=== PATIENT | female | born 1945 | race Caucasian/White ===

== ENCOUNTER 2024-11-24 14:22 | Emergency (ER) | payer OTHER ==
--- OUTSIDE RECORDS SUMMARY | 2024-11-24 14:27 | XMS REPORT | Continuity of Care Document ---
Author Name Unknown Address [address] [facility]. 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 Name Role Phone Deacon Pearson Primary Care Physician Unavailab chucho Selby MD, [facility] Attending Clinician Ethel Holm MD Attending Clinician [phone] Jw Duff MD Attending Clinician [phone] ETHEL HOLM Attending Clinician Unavailable Jw Duff MD Admitting Clinician [phone] JW DUFF Admitting Clinician Unavailable Payers Payer Name Policy Type Policy Number Effective Date Expirati on Date Source Problems Condition Name Condition Details Condition Category Status Onset Date Resolution Date Last Treatment Date Treating Clinician Comments Source SBO (small bowel obstructio n) SBO (small bowel obstructio n) Disease Active 04-16 00:00: 00 [facility] Allergies, Adverse Reactions, Alerts Allergy Name Allergy Type Status Severity Reaction(s) Onset Date Inactive Date Treating Clinician Comments Source Sulfur Propensi ty to adverse reaction s Active Rash 04-16 00:00: 00 [facility] PENICILL IN DRUG INGREDI Active Anaphylaxis 04-16 00:00: 00 [facility] SULFUR DRUG INGREDI Active Rash 04-16 00:00: 00 [facility] ONION DRUG INGREDI Active Swelling 04-16 00:00: 00 [facility] ALBUTERO L SULFATE DRUG INGREDI Active Hives 04-16 00:00: 00 [facility] Albutero l Sulfate Propensi ty to adverse reaction s Active Hives 04-16 00:00: 00 [facility] Onion Propensi ty to adverse reaction s Active Swelling 04-16 00:00: 00 lips [facility] Penicill in Propensi ty to adverse reaction s Active Anaphylaxis 04-16 00:00: 00 [facility] NO KNOWN ALLERGIE S Drug Class Active [facility] Social History Social Habit Start Date Stop Date Quantity Comments Source Sexual orientation [facility] History of Social function 2024-10-03 00:00:00 2024-10-03 00:00:00 [facility] Exposure to SARS-CoV-2 (event) 2022-04-06 00:00:00 2022-04-16 00:48:00 Not sure [facility] Sex assigned at 1945 00:00:00 1945 00:00:00 [facility] Smoking Status Start Date Stop Date Source Never smoked tobacco [facility] Medications Ordered Medication Name Filled Medication Name Start Date Stop Date Current Medication? Ordering Clinician Indication Dosage Frequency Signature (SIG) Comments Components Source NaCl 0.9% (NS) IV infusion 1,000 mL 04-18 17:00: 00 Yes 1000mL at 100 mL/hr, IV Infusion, CONTINUOUS , Starting on 04/18/22 at 1200, Until Discontinu ed, Routine [facility] lactated ringers IV infusion 500 mL 04-18 17:00: 00 04-18 15:54 :00 No 500mL at 250 mL/hr, 500 mL, IV Infusion, ONCE, 1 dose, On 04/18/22 at 1200, STAT [facility] benzocaine- menthoL (CEPACOL SORE THROAT (JAVIER-MEN)) lozenge 1 Lozenge 04-18 16:18: 59 Yes 1{lozen ge} 1 Lozenge, Oral, Q4HPRN, Starting on 04/18/22 at 1118, Until Discontinu ed, Routine, Sore throat [facility] GLIPIZIDE ORAL 04-18 14:28: 46 04-18 00:00 :00 No 5mg Take 5 mg by mouth 2 (two) times daily with meals. [facility] enalapril 5 mg tablet 04-18 14:28: 46 04-18 00:00 :00 No 5mg Take 5 mg by mouth 2 (two) times daily. [facility] TRIAMTERENE ORAL 04-18 14:28: 46 04-18 00:00 :00 No 7mg Take 7 mg by mouth daily. [facility] guanfacine HCl (GUANFACINE ORAL) 04-18 14:28: 46 04-18 00:00 :00 No 1mg Take 1 mg by mouth 2 (two) times daily. [facility] KCL (POTASSIUM CHLORIDE) 20 mEq in lactated ringers 1,000 mL infusion 04-17 17:15: 00 04-18 15:49 :35 No IV Infusion, CONTINUOUS , Starting on Wed04/17/22 at 1215, Until 04/18/22 at 1049, 1,000 mL, at 100 mL/hr [facility] magnesium sulfate in water 2 gram/50 mL (4 %) infusion 2 g 04-17 17:00: 00 04-17 18:42 :00 No 2g 2 g, IV Piggyback, Administer over 60 Minutes, Q1H, 2 doses, First dose on Wed04/17/22 at 1200, Last dose on Wed04/17/22 at 1300, Routine [facility] metoprolol (LOPRESSOR) injection 5 mg 04-17 05:30: 00 04-17 04:36 :00 No 5mg 5 mg, Intravenou s, ONCE, 1 dose, On Wed04/17/22 at 0030, Routine [facility] NaCl 0.9% (NS) IV infusion 500 mL 04-17 00:00: 00 04-17 00:22 :00 No 500mL at 125 mL/hr, IV Infusion, ONCE, 1 dose, On Wed04/16/22 at 1900, Routine [facility] NaCl 0.9% (NS) PEDIATRIC IV infusion 04-16 23:30: 00 04-17 16:09 :26 No IV Infusion, at 125 mL/hr, CONTINUOUS , Starting on Wed04/16/22 at 1830, Until Wed04/17/22 at 1109, Routine [facility] metoprolol (LOPRESSOR) injection 5 mg 04-16 22:00: 00 04-16 21:13 :00 No 5mg 5 mg, Slow IV Push, ONCE, 1 dose, On Wed04/16/22 at 1700, Routine [facility] heparin (porcine) injection 5,000 Units 04-16 19:00: 00 Yes 5000U 5,000 Units, Subcutaneo us, Q8H, First dose on Wed04/16/22 at 1400, Until Discontinu ed, Routine [facility] hydralAZINE (APRESOLINE ) injection 10 mg 04-16 17:20: 03 Yes 10mg 10 mg, Slow IV Push, Q6HPRN, Starting on Wed04/16/22 at 1220, Until Discontinu ed, Routine, DBP=>100; SBP=>160, For SBP > 160 [facility] LORazepam (ATIVAN) injection 0.5 mg 04-16 17:18: 55 Yes .5mg 0.5 mg, Slow IV Push, TIDPRN, Starting on Wed04/16/22 at 1218, Until Discontinu ed, Routine, Anxiety, Agitation [facility] proMETHazin e (PHENERGAN) 25 mg in NaCl 0.9% (NS) 50 mL IV piggyback 04-16 17:17: 26 Yes 25mg 25 mg, IV Piggyback, Q4HPRN, Starting on Wed04/16/22 at 1217, Until Discontinu ed, Routine, N/V unresponsi ve to Ondansetro n [facility] Sliding Scale Insulin-Reg ular + Fsbg Testing 04-16 17:00: 00 Yes Subcutaneo us, Q6H, First dose on Wed04/16/22 at 1200, Until Discontinu ed, Routine [facility] NaCl 0.9% (NS) IV infusion 1,000 mL 04-16 12:45: 00 04-16 12:49 :00 No 1000mL at 125 mL/hr, IV Infusion, ONCE, 1 dose, On Wed04/16/22 at 0745, Routine [facility] glucagon (GLUCAGEN DIAGNOSTIC KIT) injection 1 mg 04-16 11:48: 27 Yes 1mg 1 mg, Intramuscu lar, PRN, Starting on Wed04/16/22 at 0648, Until Discontinu ed, WAQAS, Blood Glucose < or = 70 mg/dL and patient is unable to swallow or has mental changes. [facility] ondansetron (ZOFRAN (PF)) injection 4 mg 04-16 11:44: 19 Yes 4mg 4 mg, Slow IV Push, Q6HPRN, Starting on Wed04/16/22 at 0644, Until Discontinu ed, Routine, Nausea and Vomiting (N/V) [facility] ondansetron (ZOFRAN (PF)) injection 4 mg 04-16 10:15: 00 04-16 09:05 :00 No 4mg 4 mg, Slow IV Push, ONCE, 1 dose, On Wed04/16/22 at 0515, WAQAS [facility] NaCl 0.9% (NS) bolus infusion 500 mL 04-16 08:30: 00 04-16 09:11 :00 No 500mL at 999 mL/hr, 500 mL, IV Infusion, ONCE, 1 dose, On Wed04/16/22 at 0330, STAT [facility] Vital Signs Vital Name Observation Time Observation Value Comments S justin Body weight 2024-10-03 20:40:00 90.719 kg [facility] BMI 2024-10-03 20:40:00 30.41 kg/m2 [facility] Systolic blood pressure 2022-04-18 13:20:00 144 mm[Hg] [facility] Diastolic blood pressure 2022-04-18 13:20:00 71 mm[Hg] [facility] Heart rate 2022-04-18 13:20:00 119 /min [facility] Body temperature 2022-04-18 13:20:00 36.83 Naye [facility] Oxygen saturation in Arterial blood by Pulse oximetry 2022-04-18 13:20:00 95 /min [facility] Respiratory rate 2022-04-18 01:20:00 16 /min [facility] Body weight 2022-04-17 09:50:00 91.082 kg [facility] BMI 2022-04-17 09:50:00 30.53 kg/m2 [facility] Body height 2022-04-16 12:00:00 172.7 cm [facility] Procedures Procedure Date / Time Performed Performing Clinician Source B-SCAN ULTRASOUND - OU - BOTH EYES 2024-10-04 00:01:47 Evan Selby [facility] POCT GLUCOSE (AUTOMATED) 2022-04-18 10:57:00 Pepe Holm [facility] CBC WITH DIFF 2022-04-18 10:54:00 [facility] COMP. METABOLIC PANEL ([id number]) 2022-04-18 09:01:00 Ryland Manzo [facility] MAGNESIUM 2022-04-18 09:01:00 Ryland Manzo [facility] POCT GLUCOSE (AUTOMATED) 2022-04-18 05:04:00 Pepe Holm [facility] POCT GLUCOSE (AUTOMATED) 2022-04-18 02:36:00 Pepe Holm [facility] POCT GLUCOSE (AUTOMATED) 2022-04-17 22:06:00 Pepe Holm [facility] XR KUB 2022-04-17 19:35:52 Ryland Manzo [facility] CBC WITH DIFF 2022-04-17 15:28:00 [facility] BASIC METABOLIC PANEL (NA, K, CL, CO2, GLUCOSE, BUN, CREATININE, CA) 2022-04-17 15:15:00 [facility] MAGNESIUM 2022-04-17 15:15:00 Ryland Manzo [facility] URINE DRUG (IMMUNOASSAY) - COMPREHENSIVE DRUG SCREEN 2022-04-17 14:18:00 Ethel Holm [facility] URINALYSIS 2022-04-17 14:18:00 Echo [facility] CREATININE, URINE RANDOM 2022-04-17 14:17:00 Sreekanth Manzo [facility] SODIUM, URINE RANDOM 2022-04-17 14:17:00 Ryland Manzo [facility] CBC WITH DIFF 2022-04-17 13:21:00 [facility] HEPATIC FUNCTION PANEL ([id number]) (ALB,T.PRO,BILI T,BU/BC,ALT,AST,ALK PHOS) 2022-04-17 13:21:00 [facility] POCT GLUCOSE (AUTOMATED) 2022-04-17 12:07:00 Pepe Holm [facility] XR KUB 2022-04-17 10:22:00 Adriana Garnica [facility] POCT GLUCOSE (AUTOMATED) 2022-04-17 09:52:00 Pepe Holm [facility] POCT GLUCOSE (AUTOMATED) 2022-04-17 05:47:00 Pepe Holm [facility] OCCULT (GUAIAC) BLOOD 2022-04-17 00:24:00 Liss Anderson [facility] CLOSTRIDIUM DIFFICILE TOXIN 2022-04-17 00:24:00 Trisha Anderson [facility] FECAL PATHOGENS BY PCR 2022-04-17 00:24:00 Danyel Manzo [facility] POCT GLUCOSE (AUTOMATED) 2022-04-16 21:46:00 Pepe Holm [facility] POCT GLUCOSE (AUTOMATED) 2022-04-16 17:17:00 Pepe Holm [facility] HB ECG ROUTINE & RHYTHM STRIP 2022-04-16 17:14:22 Ryland Manzo [facility] US GALL BLADDER 2022-04-16 14:32:00 Jw Duff [facility] POCT GLUCOSE (AUTOMATED) 2022-04-16 12:53:00 Pepe Holm [facility] CT ABDOMEN PELVIS WO CONTRAST 2022-04-16 08:18:00 Ethel Holm [facility] COMP. METABOLIC PANEL ([id number]) 2022-04-16 07:00:00 Ethel Holm [facility] CBC WITH DIFF 2022-04-16 07:00:00 Ethel Holm [facility] GLYCOSYLATED HEMOGLOBIN (A1C) 2022-04-16 07:00:00 Jw Duff [facility] LIPASE 2022-04-16 07:00:00 Ethel Holm [facility] HB ECG ROUTINE & RHYTHM STRIP 2022-04-16 06:46:28 Ethel Holm [facility] POCT GLUCOSE (AUTOMATED) 2022-04-16 06:20:00 Pepe Holm [facility] NOTICE OF PRIVACY PRACTICES 2022-04-16 05:41:30 Doctor Unassigned, [facility] CONSENT/REFUSAL FOR DIAGNOSIS AND TREATMENT 2022-04-16 05:40:31 Doctor Unassigned, [facility] Encounters Start Date/Time End Date/Time Encounter Type Admission Type Attending Clinicians Care Facility Care Department Encounter ID Source 2024-10-03 14:45:00 2024-10-03 17:02:16 Office Visit Evan Selby [facility] [id number] [facility] 2022-04-16 00:42:00 2022-04-18 12:15:00 Hospital Encounter Ethel Holm [facility] [id number] [facility] 2022-04-16 00:42:00 2022-04-18 12:15:00 Inpatient X ETHEL HOLM [facility] [id number] [facility] Results Test Description Test Time Test Comments Results Result Co mments Source [facility] WITH [id number] 11:06:26* Test Item Value Reference Range Interpretation Comme nts WBC (test code = 6690-2) See_Comment [Automated messa ge] The system which generated this result transmitted reference range: 4.30 - 11.10 10*3/?L. The reference range was not used to interpret this result as normal/abnormal. RBC (test code = 789-8) See_Comment L [Automated messa ge] The system which generated this result transmitted reference range: 3.93 - 5.25 10*6/?L. The reference range was not used to interpret this result as normal/abnormal. HGB (test code = 718-7) 10.2 g/dL 11.6-15.0 L HCT (test code = 4544-3) 30.7 % 35.7-45.2 L MCV (test code = 787-2) 86.7 fL 80.6-95.5 MCH (test code = 785-6) 28.8 pg 25.9-32.8 MCHC (test code = 786-4) 33.2 g/dL 31.6-35.1 RDW-SD (test code = 17305-1) 40.9 fL 39.0-49.9 RDW-CV (test code = 788-0) 12.9 % 12.0-15.5 PLT (test code = 777-3) See_Comment [Automated messa ge] The system which generated this result transmitted reference range: 166 - 358 10*3/?L. The reference range was not used to interpret this result as normal/abnormal. MPV (test code = 50589-6) 9.1 fL 9.5-12.9 L NRBC/100 WBC (test code = 9439717547) See_Comment [Automated me ssage] The system which generated this result transmitted reference range: 0.0 - 10.0 /100 WBCs. The reference range was not used to interpret this result as normal/abnormal. NRBC x10^3 (test code = 8364903829) <0.01 See_Comment [Automated messa ge] The system which generated this result transmitted reference range: 10*3/?L. The reference range was not used to interpret this result as normal/abnormal. GRAN MAT (NEUT) % (test code = 770-8) 74.1 % IMM GRAN % (test code = 3709124174) 0.50 % LYMPH % (test code = 736-9) 19.5 % MONO % (test code = 5905-5) 5.3 % EOS % (test code = 713-8) 0.3 % BASO % (test code = 706-2) 0.3 % GRAN MAT x10^3(ANC) (test code = 4255288360) 6.55 10*3/uL 1.88-7.09 IMM GRAN x10^3 (test code = 7705587233) 0.04 10*3/uL 0.00-0.06 LYMPH x10^3 (test code = 731-0) 1.73 10*3/uL 1.32-3.29 MONO x10^3 (test code = 742-7) 0.47 10*3/uL 0.33-0.92 EOS x10^3 (test code = 711-2) 0.03 10*3/uL 0.03-0.39 BASO x10^3 (test code = 704-7) 0.03 10*3/uL 0.01-0.07 Lab Interpretation (test code = 32510-7) [facility]* Test Item Value Reference Range Interpretation Comme nts MAGNESIUM (test code = 0679191752) 2.4 mg/dL 1.7-2.4 Lab Interpretation (test cod e = 13377-0) Normal [facility]. METABOLIC PANEL (00318)2022-04-18 10:00:58* Test Item Value Reference Range Interpretation Comme nts NA (test code = 3086154381) 137 mmol/L 135-145 K (test code = 3609015054) 3.4 mmol/L 3.5-5.0 L CL (test code = 6670119360) 108 mmol/L 98-108 CO2 TOTAL (test code = 9279197695) 14 mmol/L 23-31 L AGAP (test code = 8066508821) 2-16 BUN (test code = 1431834242) 73 mg/dL 7-23 H GLUCOSE (test code = 4940972890) 174 mg/dL 70-110 H CREATININE (test code = 9152928394) 1.58 mg/dL 0.50-1.04 H TOTAL BILI (test code = 4892256144) 0.3 mg/dL 0.1-1.1 CALCIUM (test code = 9454099847) 8.2 mg/dL 8.6-10.6 L T PROTEIN (test code = 3746134134) 7.5 g/dL 6.3-8.2 ALBUMIN (test code = 8267353103) 3.9 g/dL 3.5-5.0 ALK PHOS (test code = 3275854321) 78 U/L 34-122 ALTv (test code = 1742-6) 29 U/L 5-35 AST(SGOT) (test code = 4852573277) 22 U/L 13-40 eGFR (test code = 6225698578) mL/min/1.73m2 TIERRA (test code = TIERRA) Association of Glomerular Filtration Rate (GFR) and Staging of Kidney Disease* + --+ --+ ------+| GFR (mL/min/1.73 m2) ?| With Kidney Damage ?| ?Without Kidney Damage+ --------+ --------+ +| ?>90 ?| ?Stage one ?| ? Normal ?+ ---+ ---+ -------+| ?60-89 ?| ?Stage two ?| ? Decreased GFR ? + --+ --+ ------+| ?30-59 ?| ?Stage three ?| ? Stage three ? + --+ --+ ------+| ?15-29 ?| ?Stage four ? | ? Stage four ?+ ---+ ---+ -------+| ?<15 (or dialysis) ? ?| ?Stage five ? | ? Stage five ?+ ---+ ---+ -------+ *Each stage assumes the associated GFR level has been in effect for at least three months. ?Stages 1 to 5, with or without kidney disease, indicate chronic kidney disease. Notes: Determination of stages one and two (with eGFR >59mL/min/1.73 m2) requires estimation of kidney damage for at least three months as defined by structural or functional abnormalities of the kidney, manifested by either:Pathological abnormalities or Markers of kidney damage (including abnormalities in the composition of the blood or urine or abnormalities in imaging tests). Lab Interpretation (test code = 61412-0) Abnormal [facility] GLUCOSE (AUTOMATED)2022-04-18 05:32:55* Test Item Value Reference Range Interpretation Comme nts POCT GLU (test code = 1782191926) 195 mg/dL 70-110 H Lab Interpretation (test cod e = 38800-6) Abnormal [facility] GLUCOSE (AUTOMATED)2022-04-18 05:25:33* Test Item Value Reference Range Interpretation Comme nts POCT GLU (test code = 1933485460) 184 mg/dL 70-110 H Lab Interpretation (test cod e = 90438-7) Abnormal [facility] GLUCOSE (AUTOMATED)2022-04-18 01:38:01* Test Item Value Reference Range Interpretation Comme nts POCT GLU (test code = 6707764063) 175 mg/dL 70-110 H Lab Interpretation (test cod e = 60279-0) Abnormal [facility] GLUCOSE (AUTOMATED)2022-04-17 17:25:00* Test Item Value Reference Range Interpretation Comme nts POCT GLU (test code = 7392880559) 137 mg/dL 70-110 H Lab Interpretation (test cod e = 38445-6) Abnormal [facility] Metabolic Panel (NA, K, CL, CO2, GLUCOSE, BUN, CREATININE, CA)2022-04-17 16:03:48* Test Item Value Reference Range Interpretation Comme nts NA (test code = 6575197017) 136 mmol/L 135-145 K (test code = 8240746863) 3.4 mmol/L 3.5-5.0 L CL (test code = 5867409863) 101 mmol/L 98-108 CO2 TOTAL (test code = 3750702549) 17 mmol/L 23-31 L AGAP (test code = 6807594190) 2-16 H BUN (test code = 4152060671) 88 mg/dL 7-23 H GLUCOSE (test code = 5759882539) 148 mg/dL 70-110 H CREATININE (test code = 2514712889) 2.41 mg/dL 0.50-1.04 H CALCIUM (test code = 2479651104) 7.9 mg/dL 8.6-10.6 L eGFR (test code = 1866164754) mL/min/1.73m2 TIERRA (test code = TIERRA) Association of Glomerular Filtration Rate (GFR) and Staging of Kidney Disease* + --+ --+ ------+| GFR (mL/min/1.73 m2) ?| With Kidney Damage ?| ?Without Kidney Damage+ --------+ --------+ +| ?>90 ?| ?Stage one ?| ? Normal ?+ ---+ ---+ -------+| ?60-89 ?| ?Stage two ?| ? Decreased GFR ? + --+ --+ ------+| ?30-59 ?| ?Stage three ?| ? Stage three ? + --+ --+ ------+| ?15-29 ?| ?Stage four ? | ? Stage four ?+ ---+ ---+ -------+| ?<15 (or dialysis) ? ?| ?Stage five ? | ? Stage five ?+ ---+ ---+ -------+ *Each stage assumes the associated GFR level has been in effect for at least three months. ?Stages 1 to 5, with or without kidney disease, indicate chronic kidney disease. Notes: Determination of stages one and two (with eGFR >59mL/min/1.73 m2) requires estimation of kidney damage for at least three months as defined by structural or functional abnormalities of the kidney, manifested by either:Pathological abnormalities or Markers of kidney damage (including abnormalities in the composition of the blood or urine or abnormalities in imaging tests). Lab Interpretation (test code = 97700-4) [facility] 16:03:48* Test Item Value Reference Range Interpretation Comme nts MAGNESIUM (test code = 3266123520) 1.2 mg/dL 1.7-2.4 L Lab Interpretation (test cod e = 09135-1) [facility] [id number] 15:43:22* Test Item Value Reference Range Interpretation Comme nts WBC (test code = 6690-2) See_Comment [Automated messa ge] The system which generated this result transmitted reference range: 4.30 - 11.10 10*3/?L. The reference range was not used to interpret this result as normal/abnormal. RBC (test code = 789-8) See_Comment L [Automated messa ge] The system which generated this result transmitted reference range: 3.93 - 5.25 10*6/?L. The reference range was not used to interpret this result as normal/abnormal. HGB (test code = 718-7) 10.7 g/dL 11.6-15.0 L HCT (test code = 4544-3) 31.7 % 35.7-45.2 L MCV (test code = 787-2) 86.4 fL 80.6-95.5 MCH (test code = 785-6) 29.2 pg 25.9-32.8 MCHC (test code = 786-4) 33.8 g/dL 31.6-35.1 RDW-SD (test code = 27912-4) 40.3 fL 39.0-49.9 RDW-CV (test code = 788-0) 12.8 % 12.0-15.5 PLT (test code = 777-3) See_Comment H [Automated messa ge] The system which generated this result transmitted reference range: 166 - 358 10*3/?L. The reference range was not used to interpret this result as normal/abnormal. MPV (test code = 35880-4) 9.4 fL 9.5-12.9 L NRBC/100 WBC (test code = 9273188136) See_Comment [Automated me ssage] The system which generated this result transmitted reference range: 0.0 - 10.0 /100 WBCs. The reference range was not used to interpret this result as normal/abnormal. NRBC x10^3 (test code = 1714316532) <0.01 See_Comment [Automated messa ge] The system which generated this result transmitted reference range: 10*3/?L. The reference range was not used to interpret this result as normal/abnormal. GRAN MAT (NEUT) % (test code = 770-8) 78.3 % IMM GRAN % (test code = 0511315695) 0.40 % LYMPH % (test code = 736-9) 15.0 % MONO % (test code = 5905-5) 5.6 % EOS % (test code = 713-8) 0.4 % BASO % (test code = 706-2) 0.3 % GRAN MAT x10^3(ANC) (test code = 4180350361) 7.38 10*3/uL 1.88-7.09 H IMM GRAN x10^3 (test code = 4572027551) 0.04 10*3/uL 0.00-0.06 LYMPH x10^3 (test code = 731-0) 1.42 10*3/uL 1.32-3.29 MONO x10^3 (test code = 742-7) 0.53 10*3/uL 0.33-0.92 EOS x10^3 (test code = 711-2) 0.04 10*3/uL 0.03-0.39 BASO x10^3 (test code = 704-7) 0.03 10*3/uL 0.01-0.07 Lab Interpretation (test code = 92886-9) [facility]87122[facility] (ALB,T.PRO,BILI T,BU/BC,ALT,AST,ALK PHOS)2022-04-17 14:07:47TOTAL BILIComment: Possible contamination notified Dr Sreekanth Manzo. Requested recollection. This is a corrected result. ?Previous result was 0.1 mg/dL on 04/17/2022 at [facility] LABORATORYBILI UNCONComment: Possible contamination notified Dr Sreekanth Manzo. Requested recollection. Thisis a corrected result. ?Previous result was 0.0 mg/dL on 04/17/[address] [place], [place] [address]BILI CONJComment: Possible contamination notified Dr Sreekanth Manzo. Requested recollection. This is a corrected result. ?Previous result was 0.0 mg/dL on 04/17/[address] [place] [address] LABORATORYT PROTEINComment: Possible contamination notified Dr Sreekanth Manzo. Requested recollection. This is a corrected result. ?Previous result was 6.4 g/dL on 04/17/[address] [place] [address] LABORATORYALBUMINComment: Possible contamination notified Dr Sreekanth Manzo. Requested recollection. This is a corrected result. ?Previous result was 3.4 g/dL on 04/17/[address] [place] [address] LABORATORYALK PHOSComment: Possible contamination notified Dr Sreekanth Manzo. Requestedrecollection. This is a corrected result. ?Previous result was 61 U/L on 04/17/[address] [place] [address] LABORATORYALTvComment: Possible contamination notified Dr Sreekanth Manzo. Requested recollection. This is a corrected result. ?Previous result was 28 U/L on 04/17/[address] [place] [address] LABORATORYAST(SGOT)Comment: Possible contamination notified Dr Sreekanth Manzo. Requested recollection. This is a corrected result. ?Previous result was 20 U/L on 04/17/[address] [place] [address] [facility] with [id number] 14:01:50WBCComment: Possible contamination Notified Dr. Manzo as per SPB. This is a corrected result. ?Prev ious result was 8.96 10*3/?L on 04/17/[address] [place] [address] LABORATORYRBCComment: Possible contamination Notified Dr. Manzo as per SPB. This is a corrected result. ?Previous result was 2.97 10*6/?L on 04/17/[address] [place] [address] LABORATORYHGBComment: Possible contamination Notified Dr. Manzo as per SPB. This is a corrected result. ?Previous result was 8.8 g/dL on 04/17/[address] [place] [address] LABORATORYHCTComment: Possible contamination Notified Dr. Manzo as per SPB. This is a corrected result. ?Previous result was 25.7 % on 04/17/[address] [place], [place] [address]MCVComment: Possible contamination Notified Dr. Manzo as per SPB. This is a corrected result. ?Previous result was 86.5 fL on 04/17/[address] [place] [address] LABORATORYMCHComment: Possible contamination Notified Dr. Manzo as per SPB. This is a corrected result. ?Previous result was 29.6 pg on 04/17/[address] [place], [place] [address]MCHCComment: Possible contamination Notified Dr. Manzo as per SPB. This is a corrected result. ?Previous result was 34.2 g/dL on 04/17/[address] [place], [place] [address]RDW-SDComment: Possible contamination Notified Dr. Manzo as per SPB. This is a corrected result. ?Previous result was 40.6 fL on 04/17/[address] [place], [place] [address]RDW-CVComment: Possible contamination Notified Dr. Manzo as per SPB. This is a corrected result. ?Previous result was 12.9 % on 04/17/[address] [place] [address] LABORATORYPLTComment: Possible contamination Notified Dr. Manzo as per SPB. This is a corrected result. ?Previous result was 315 10*3/?L on 04/17/[address] [place] [address] LABORATORYMPVComment: Possible contamination Notified Dr. Manzo as per SPB. This is a corrected result. ?Previous result was 9.2 fL on 04/17/[address] [place] [address] LABORATORYNRBC/100 WBCComment: This is a corrected result. Previous result was 0.0 /100 WBCs on 04/17/[address] [place], [place] [address]NRBC x10^3Comment: This is a corrected result. Previous result was <0.01 10*3/?L on 04/17/[address] [place] [address] LABORATORYGRAN MAT (NEUT) %Comment: This is a corrected result. Previous result was 71.9 % on 04/17/[address] [place] [address] LABORATORYIMM GRAN %Comment: This renard corrected result. Previous result was 0.40 % on 04/17/[address] [place] [address] LAB ORATORYLYMPH %Comment: This is a corrected result. Previous result was 21.3 % on 04/17/[address] [place] [address] LABORATORYMONO %Comment: This is a corrected result. Previous result was 5.8 % on 04/17/[address] [place] [address] LABORATORYEOS %Comment: This is a corrected result. Previous result was 0.4 % on 04/17/[address] [place] [address] LABORATORYBASO%Comment: This is a corrected result. Previous result was 0.2 % on 04/17/[address] [place] [address] LABORATORYGRAN MAT x10^3(ANC)Comment: This is a corrected result. Previous result was6.43 10*3/uL on 04/17/[address] [place] [address] LABORATORYIMM GRAN x10^3Comment: This is a corrected result. Previous result was 0.04 10*3/uL on 04/17/[address] [place] [address] LABORATORYLYMPH x10^3Comment: This is a corrected result. Previous result was 1.91 10*3/uL on 04/17/[address] [place] [address] LABORATORYMONO x10^3Comment: This is a corrected result. Previous result was 0.52 10*3/uL on 04/17/[address] [place] [address] LABORATORYEOS x10^3Comment: This is a corrected result. Previous result was 0.04 10*3/uL on 04/17/[address] [place] [address] LABORATORYBASO x10^3Comment: This is a corrected result. Previous resultwas <0.03 10*3/uL on 04/17/2022 at [address] [facility] LABORATORYUnGeneral acute hospital GLUCOSE (AUTOMATED) 2022-04-17 12:53:56* Test Item Value Reference Range Interpretation Comme nts POCT GLU (test code = 0595235990) 130 mg/dL 70-110 H Lab Interpretation (test cod e = 36074-3) Abnormal [facility] GLUCOSE (AUTOMATED)2022-04-17 05:56:50* Test Item Value Reference Range Interpretation Comme nts POCT GLU (test code = 4846921601) 126 mg/dL 70-110 H Lab Interpretation (test cod e = 02373-1) Abnormal [facility] GLUCOSE (AUTOMATED)2022-04-16 21:59:09* Test Item Value Reference Range Interpretation Comme nts POCT GLU (test code = 7044464724) 236 mg/dL 70-110 H Lab Interpretation (test cod e = 78120-6) Abnormal [facility] GLUCOSE (AUTOMATED)2022-04-16 17:21:47* Test Item Value Reference Range Interpretation Comme nts POCT GLU (test code = 7771845598) 255 mg/dL 70-110 H Lab Interpretation (test cod e = 97543-2) [facility]16 15:09:27* Test Item Value Reference Range Interpretation Comme nts HGB A1C (test code = 4548-4) 7.2 % 4.0-5.7 H TIERRA (test code = TIERRA) Reference RangesNormal: <5.7%Prediabetes: 5.7 - 6.4%Diabetes: > 6.5% Lab Interpretation (test code = 85144-7) Abnormal [facility] GLUCOSE (AUTOMATED)2022-04-16 13:10:41* Test Item Value Reference Range Interpretation Comme nts POCT GLU (test code = 4891655741) 240 mg/dL 70-110 H Lab Interpretation (test cod e = 03602-7) [facility]normal [facility] CenterCOMP. METABOLIC PANEL (12483)2022-04-16 07:19:07* Test Item Value Reference Range Interpretation Comme nts NA (test code = 8411275251) 128 mmol/L 135-145 L K (test code = 6492871448) 4.3 mmol/L 3.5-5.0 CL (test code = 9082661720) 91 mmol/L 98-108 L CO2 TOTAL (test code = 8902195991) 18 mmol/L 23-31 L AGAP (test code = 0779807881) 2-16 H BUN (test code = 3448858132) 84 mg/dL 7-23 H GLUCOSE (test code = 6375472061) 205 mg/dL 70-110 H CREATININE (test code = 6902424677) 2.64 mg/dL 0.50-1.04 H TOTAL BILI (test code = 1653219288) 0.3 mg/dL 0.1-1.1 CALCIUM (test code = 6820873540) 9.1 mg/dL 8.6-10.6 T PROTEIN (test code = 5885427246) 7.2 g/dL 6.3-8.2 ALBUMIN (test code = 7240854885) 4.0 g/dL 3.5-5.0 ALK PHOS (test code = 9036507016) 71 U/L 34-122 ALTv (test code = 1742-6) 40 U/L 5-35 H AST(SGOT) (test code = 4231521444) 26 U/L 13-40 eGFR (test code = 8829282512) mL/min/1.73m2 TIERRA (test code = TIERRA) Association of Glomerular Filtration Rate (GFR) and Staging of Kidney Disease* + --+ --+ ------+| GFR (mL/min/1.73 m2) ?| With Kidney Damage ?| ?Without Kidney Damage+ --------+ --------+ +| ?>90 ?| ?Stage one ?| ? Normal ?+ ---+ ---+ -------+| ?60-89 ?| ?Stage two ?| ? Decreased GFR ? + --+ --+ ------+| ?30-59 ?| ?Stage three ?| ? Stage three ? + --+ --+ ------+| ?15-29 ?| ?Stage four ? | ? Stage four ?+ ---+ ---+ -------+| ?<15 (or dialysis) ? ?| ?Stage five ? | ? Stage five ?+ ---+ ---+ -------+ *Each stage assumes the associated GFR level has been in effect for at least three months. ?Stages 1 to 5, with or without kidney disease, indicate chronic kidney disease. Notes: Determination of stages one and two (with eGFR >59mL/min/1.73 m2) requires estimation of kidney damage for at least three months as defined by structural or functional abnormalities of the kidney, manifested by either:Pathological abnormalities or Markers of kidney damage (including abnormalities in the composition of the blood or urine or abnormalities in imaging tests). Lab Interpretation (test code = 60272-7) [facility]normal [facility] CenterLIPASE2022-[facility] 07:18:47* Test Item Value Reference Range Interpretation Comme nts LIPASE (test code = 5625815977) 657 U/L 0-220 H Lab Interpretation (test cod e = 09561-2) [facility]normal [facility] CenterCBC WITH [id number] 07:07:25* Test Item Value Reference Range Interpretation Comme nts WBC (test code = 6690-2) See_Comment [Automated [email or web address]] The system which generated this result transmitted reference range: 4.30 - 11.10 10*3/?L. The reference range was not used to interpret this result as normal/abnormal. RBC (test code = 789-8) See_Comment L [Automated [email or web address]] The system which generated this result transmitted reference range: 3.93 - 5.25 10*6/?L. The reference range was not used to interpret this result as normal/abnormal. HGB (test code = 718-7) 10.6 g/dL 11.6-15.0 L HCT (test code = 4544-3) 30.6 % 35.7-45.2 L MCV (test code = 787-2) 83.8 fL 80.6-95.5 MCH (test code = 785-6) 29.0 pg 25.9-32.8 MCHC (test code = 786-4) 34.6 g/dL 31.6-35.1 RDW-SD (test code = 54305-7) 37.7 fL 39.0-49.9 L RDW-CV (test code = 788-0) 12.5 % 12.0-15.5 PLT (test code = 777-3) See_Comment [Automated messa ge] The system which generated this result transmitted reference range: 166 - 358 10*3/?L. The reference range was not used to interpret this result as normal/abnormal. MPV (test code = 49066-6) 9.5 fL 9.5-12.9 NRBC/100 WBC (test code = 7391950881) See_Comment [Automated me ssage] The system which generated this result transmitted reference range: 0.0 - 10.0 /100 WBCs. The reference range was not used to interpret this result as normal/abnormal. NRBC x10^3 (test code = 6974033700) <0.01 See_Comment [Automated messa ge] The system which generated this result transmitted reference range: 10*3/?L. The reference range was not used to interpret this result as normal/abnormal. GRAN MAT (NEUT) % (test code = 770-8) 73.1 % IMM GRAN % (test code = 5963593594) 0.50 % LYMPH % (test code = 736-9) 18.4 % MONO % (test code = 5905-5) 7.2 % EOS % (test code = 713-8) 0.4 % BASO % (test code = 706-2) 0.4 % GRAN MAT x10^3(ANC) (test code = 8151544192) 5.60 10*3/uL 1.88-7.09 IMM GRAN x10^3 (test code = 0257751727) 0.04 10*3/uL 0.00-0.06 LYMPH x10^3 (test code = 731-0) 1.41 10*3/uL 1.32-3.29 MONO x10^3 (test code = 742-7) 0.55 10*3/uL 0.33-0.92 EOS x10^3 (test code = 711-2) 0.03 10*3/uL 0.03-0.39 BASO x10^3 (test code = 704-7) 0.03 10*3/uL 0.01-0.07 Lab Interpretation (test code = 21343-3) Abnormal [facility] GLUCOSE (AUTOMATED)2022-04-16 06:24:26* Test Item Value Reference Range Interpretation Comme nts POCT GLU (test code = 3702118874) 198 mg/dL 70-110 H Notified Provide r Lab Interpretation (test code = 03171-4) Abnormal [facility]"
[2024-11-24] MEDS ORDERED: LIDOCAINE 2% W/EPI 1:200,000 MPF 20 ML VIAL IM ONE (15:08)
--- NOTE | 2024-11-24 15:21 | RAD REPORT ---
EXAMINATION: CT HEAD WITHOUT CONTRAST CLINICAL INDICATION: Female, 79 years old.TRAUMA TECHNIQUE: Axial CT images from the skull base to the vertex without intravenous contrast. Coronal an d sagittal reformatted images were created from the data set. One or more of the following dose reduction techniques were used: Automated exposure control, adjustment of the mA and/or kV according to patient size, and/or iterative reconstruction. Unless otherwise specified, incidental findings do not require dedicated imaging follow-up. [id number]. COMPARISON: No prior exam. FINDINGS: INTRACRANIAL: No acute intracranial hemorrhage. No hydrocephalus. No mass effect or midline shift. Mi ld chronic small vessel ischemic changes.Mild cerebral atrophy. Right forehead laceration. VASCULATURE: No visualized abnormalities in the arteries or dural venous sinuses. SCALP/SKULL: No significant soft tissue or osseous abnormalities. SINUSES: The visualized paranasal sinuses and mastoid air cells are predominantly clear. IMPRESSION: No acute intracranial abnormality.
--- NOTE | 2024-11-24 16:54 | ER ---
Nurse's Notes [facility] Name: Diana Saavedra Age: 79 yrs Sex: Female : 1945 Arrival Date: 11/24/2024 Time: 14:22 Bed 18 Private MD: Diagnosis: Laceration without foreign body of scalp Presentation: 11/24 14:49 Chief complaint: EMS states: Head laceration. Hitting head on the garage door. os Coronavirus screen: Vaccine status: Patient reports receiving the 2nd dose of the covid vaccine. Client denies travel out of the [place] in the last 14 days. At this time, the client does not indicate any symptoms associated with coronavirus-19. Ebola Screen: Patient denies travel to an Ebola-affected area in the 21 days before illness onset. No symptoms or risks identified at this time. Initial Sepsis Screen: Does the patient meet any 2 criteria? No. Patient's initial sepsis screen is negative. Does the patient have a suspected source of infection? No. Patient's initial sepsis screen is negative. Risk Assessment: Do you want to hurt yourself or someone else? Patient reports no desire to harm self or others. Onset of symptoms was November 24, 2024. 14:49 Method Of Arrival: EMS: [facility] os 14:49 Acuity: CONCETTA 3 os Triage Assessment: 14:56 General: Appears in no apparent distress. comfortable, Behavior is calm, cooperative, os appropriate for age. Pain: Complains of pain in top of head Pain currently is 4 out of 10 on a pain scale. Quality of pain is described as aching. Neuro: No deficits noted. Cardiovascular: No deficits noted. Respiratory: No deficits noted. Injury Description: Laceration sustained to top of head. Historical: - Allergies: 14:56 PENICILLINS; os - Immunization history:: Adult Immunizations up to date. - Infectious Disease History:: Denies. - Social history:: Smoking status: Patient denies any tobacco usage or history of. Screenin:41 [facility] ED Fall Risk Assessment (Adult) History of falling in the last 3 months, os including since admission No falls in past 3 months (0 pts) Confusion or Disorientation No (0 pts) Intoxicated or Sedated No (0 pts) Impaired Gait No (0 pts) Mobility Assist Device Used No (0 pt) Altered Elimination No (0 pt) Score/Fall Risk Level 0 - 2 = Low Risk. Abuse screen: Denies threats or abuse. Nutritional screening: No deficits noted. Tuberculosis screening: No symptoms or risk factors identified. Assessment: 18:37 Reassessment: Wound was dressed with 4x4 gauze and orthonet . Bleeding was controlled.. os Vital Signs: 14:49 BP 156 / 69; Pulse 108; Resp 18; Temp 98.2; Pulse Ox 98% on R/A; Weight 72.57 kg; os Height 5 ft. 8 in. ; 14:56 BP 134 / 71; Pulse 103; Resp 18; Temp 97.8; Pulse Ox 100% on R/A; os 18:00 BP 136 / 82; Pulse 85; Resp 18; Temp 97.7(O); Pulse Ox 97% on R/A; os 14:49 Body Mass Index 24.33 (72.57 kg, 172.72 cm) os ED Course: 14:33 Patient arrived in ED. eb 14:34 Kimo Rojas DO is Attending Physician. ms3 14:49 Cecilia Trimble, RN is Primary Nurse. os 14:56 Triage completed. os 15:10 CT Head Brain wo Cont In Process Unspecified. EDMS 16:53 Artur Prieto DO is Referral Physician. ms3 18:41 Patient has correct armband on for positive identification. Allergy band placed. Bed in os low position. Call light in reach. Side rails up X2. Adult w/ patient. Provided Education on: . 18:41 Assist provider with laceration repair on top of head. Patient did not have IV access os during this emergency room visit. 18:45 Patient 4x4 gauze and ortho-net. os Administered Medications: 15:37 Drug: Lidocaine-Epinephrine Infiltration -1%: (1:100,000) 10 ml 20 ml Infiltration os once; to bedside Volume: 20 ml; Route: Infiltration; 18:39 Follow up: Response: No adverse reaction os Medication: 18:46 VIS not applicable for this client. os Outcome: 16:54 Discharge ordered by . ms3 18:43 Discharged to home ambulatory, os 18:43 Condition: improved 18:43 Discharge instructions given to family, Instructed on discharge instructions, follow up and referral plans. no drinking with medication, medication usage, 18:46 Patient left the ED. os Signatures: Dispatcher Nilsa EDMS Mary Crawford Marcus, DO SERRANO ms3 Cecilia Trimble, RN RN os
--- NOTE | 2024-11-24 16:54 | EDPHYS ---
Physician Documentation [facility] Name: Diana Saavedra Age: 79 yrs Sex: Female : 1945 Arrival Date: 11/24/2024 Time: 14:22 Bed 18 Private MD: ED Physician Kimo Rojas HPI: 11/24 19:11 This 79 yrs old Female presents to ER via EMS with complaints of scalp laceration. ms3 19:11 Ms. Saavedra is an 79-year-old female who presents to the emergency department after ms3 sustaining a head injury. While opening the door at her home, a piece of wood from a door bracket fell and grazed her head. She describes the sensation as a scrape rather than a direct impact and notes that she did not lose consciousness or fall. Ms. Saavedra has a known history of anemia and reports easy bruising and prolonged bleeding from minor cuts. She expresses concern about a potential head injury but is unsure about the need for imaging. She reports having had a recent tetanus shot about a year ago.. Historical: - Allergies: 14:56 PENICILLINS; os - Immunization history:: Adult Immunizations up to date. - Infectious Disease History:: Denies. - Social history:: Smoking status: Patient denies any tobacco usage or history of. ROS: 19:11 Constitutional: Negative for fever, and chills. Cardiovascular: Negative for chest ms3 pain, and palpitations. Respiratory: Negative for shortness of breath, cough, wheezing, and pleuritic chest pain, Abdomen/GI: Negative for abdominal pain, nausea, vomiting, diarrhea, and constipation, MS/Extremity: Negative for injury and deformity, 19:11 Skin: Positive for laceration(s), Exam: 19:11 Constitutional: This is a well developed, well nourished patient who is awake, alert, ms3 and in no acute distress. Chest/axilla: Normal chest wall appearance and motion. Nontender with no deformity. Cardiovascular: Regular rate and rhythm with a normal S1 and S2. No gallops, murmurs, or rubs. Normal PMI, no JVD. No pulse deficits. Respiratory: Lungs have equal breath sounds bilaterally, clear to auscultation and percussion. No rales, rhonchi or wheezes noted. No increased work of breathing, no retractions or nasal flaring. Abdomen/GI: Soft, non-tender, with normal bowel sounds. No distension or tympany. No guarding or rebound. No evidence of tenderness throughout. 19:11 Head/face: Noted is a laceration(s), that is superficial, that is linear, 6 cm(s), Vital Signs: 14:49 BP 156 / 69; Pulse 108; Resp 18; Temp 98.2; Pulse Ox 98% on R/A; Weight 72.57 kg; os Height 5 ft. 8 in. ; 14:56 BP 134 / 71; Pulse 103; Resp 18; Temp 97.8; Pulse Ox 100% on R/A; os 18:00 BP 136 / 82; Pulse 85; Resp 18; Temp 97.7(O); Pulse Ox 97% on R/A; os 14:49 Body Mass Index 24.33 (72.57 kg, 172.72 cm) os Laceration: 19:11 Wound Repair of 6cm ( 2.4in ) subcutaneous laceration to top of head. Linear shaped.. ms3 Distal neuro/vascular/tendon intact. Anesthesia: Local anesthetic administered with 3 mls of 1% lidocaine w/ Epi. Wound prep: Simple cleansing. Skin closed with 8 1-0 Uriah using simple sutures and sterile technique. Patient tolerated well. MDM: 14:56 Medical Screening Exam initiated ms3 19:11 Differential diagnosis: superficial laceration, Head injury. Data reviewed: vital ms3 signs, nurses notes, radiologic studies, CT scan. I considered the following discharge prescriptions or medication management in the emergency department Medications were administered in the Emergency Department. See MAR. Counseling: I had a detailed discussion with the patient and/or guardian regarding the historical points, exam findings, and any diagnostic results supporting the discharge/admit diagnosis, radiology results, the need for outpatient follow up, to return to the emergency department if symptoms worsen or persist or if there are any questions or concerns that arise at home. Special discussion: I discussed with the patient/guardian in detail that at this point there is no indication for admission to the hospital. It is understood, however, that if the symptoms persist or worsen the patient needs to return immediately for re-evaluation. ED course: . ED course: Discussed CT head results with patient and her daughter. Uriah placed and wound hemostatic at time of discharge. Patient states tetanus is up-to-date as she received a tetanus shot 1 year ago. Patient to follow-up with her primary care physician in 1 week for staple removal. Patient given staple removal tool. Return cautions discussed include redness, exudative drainage, or any other concerns.. 11/24 14:55 Order name: CT Head Brain wo Cont; Complete Time: 16:35 ms3 11/24 14:57 Order name: Dressing - Wound; Complete Time: 15:37 ms3 11/24 14:57 Order name: Gloves, Sterile; Complete Time: 15:37 ms3 11/24 14:57 Order name: Setup Suture Tray; Complete Time: 15:37 ms3 Administered Medications: 15:37 Drug: Lidocaine-Epinephrine Infiltration -1%: (1:100,000) 10 ml 20 ml Infiltration os once; to bedside Volume: 20 ml; Route: Infiltration; 18:39 Follow up: Response: No adverse reaction os Disposition Summary: 11/24/24 16:54 Discharge Ordered Notes: Location: Home ms3 Condition: Stable ms3 Diagnosis - Laceration without foreign body of scalp ms3 Followup: ms3 - With: Artur Prieto DO - When: 1 week - Reason: Staple/Suture removal Discharge Instructions: - Discharge Summary Sheet ms3 - Facial or Scalp Contusion ms3 Forms: - Medication Reconciliation Form ms3 - Antibiotic Education ms3 - Prescription Opioid Use ms3 - Patient Portal Instructions ms3 - Leadership Thank You Letter ms3 Signatures: Dispatcher Kimo Lawrence DO DO ms3 Cecilia Trimble, RN RN os
[2024-11-24 18:52] VITALS: BP 136/82; TEMP 97.7; O2SAT 97
== END 2024-11-24 18:46 | disposition home or self-care (01) ==
LOC: ER 14:22
DX: S01.01XA Laceration without foreign body of scalp, initial encounter (principal)
CPT/HCPCS: 12002; 70450; 99284

== ENCOUNTER 2024-12-01 12:26 | Emergency (ER) | payer OTHER ==
--- OUTSIDE RECORDS SUMMARY | 2024-12-01 12:30 | XMS REPORT | Continuity of Care Document ---
Author Name Unknown Address [address] [facility] [address]. [address] [place] [address] [facility] [address] [facility]. [address] [place] [address] Care Team Providers Care Control Room Technician Name Role Phone Deacon Pearson Primary Care Physician Unavailab chucho Selby MD, Evan Attending Clinician [phone] Ethel Holm MD Attending Clinician [phone] Jw Duff MD Attending Clinician [phone] ETHEL HOLM Attending Clinician Unavailable Jw Duff MD Admitting Clinician [phone] JW DUFF Admitting Clinician Unavailable Payers Payer Name Policy Type Policy Number Effective Date Expirati on Date Source Problems Condition Name Condition Details Condition Category Status Onset Date Resolution Date Last Treatment Date Treating Clinician Comments Source SBO (small bowel obstructio n) SBO (small bowel obstructio n) Disease Active 04-16 00:00: 00 [facility] Allergies, Adverse Reactions, Alerts Allergy Name Allergy Type Status Severity Reaction(s) Onset Date Inactive Date Treating Clinician Comments Source Sulfur Propensi ty to adverse reaction s Active Rash 04-16 00:00: 00 [facility] PENICILL IN DRUG INGREDI Active Anaphylaxis 04-16 00:00: 00 [facility] SULFUR DRUG INGREDI Active Rash 04-16 00:00: 00 [facility] ONION DRUG INGREDI Active Swelling 04-16 00:00: 00 [facility] ALBUTERO L SULFATE DRUG INGREDI Active Hives 04-16 00:00: 00 [facility] Albutero l Sulfate Propensi ty to adverse reaction s Active Hives 04-16 00:00: 00 [facility] Onion Propensi ty to adverse reaction s Active Swelling 04-16 00:00: 00 lips [facility] Penicill in Propensi ty to adverse reaction s Active Anaphylaxis 04-16 00:00: 00 [facility] NO KNOWN ALLERGIE S Drug Class Active [facility] Social History Social Habit Start Date Stop Date Quantity Comments Source [facility] function 2024-10-03 00:00:00 2024-10-03 00:00:00 [facility] Exposure to SARS-CoV-2 (event) 2022-04-06 00:00:00 2022-04-16 00:48:00 Not sure [facility] Sex assigned at 1945 00:00:00 1945 00:00:00 [facility] Smoking Status Start Date Stop Date Source Never smoked tobacco [facility] Medications Ordered Medication Name Filled Medication Name Start Date Stop Date Current Medication? Ordering Clinician Indication Dosage Frequency Signature (SIG) Comments Components Source NaCl 0.9% (NS) IV infusion 1,000 mL 04-18 17:00: 00 Yes 1000mL at 100 mL/hr, IV Infusion, CONTINUOUS , Starting on 04/18/22 at 1200, Until Discontinu ed, Routine [facility] lactated ringers IV infusion 500 mL 04-18 17:00: 00 04-18 15:54 :00 No 500mL at 250 mL/hr, 500 mL, IV Infusion, ONCE, 1 dose, On 04/18/22 at 1200, STAT [facility] benzocaine- menthoL (CEPACOL SORE THROAT (JAVIER-MEN)) lozenge 1 Lozenge 04-18 16:18: 59 Yes 1{lozen ge} 1 Lozenge, Oral, Q4HPRN, Starting on 04/18/22 at 1118, Until Discontinu ed, Routine, Sore throat [facility] GLIPIZIDE ORAL 04-18 14:28: 46 04-18 00:00 :00 No 5mg Take 5 mg by mouth 2 (two) times daily with meals. [facility] enalapril 5 mg tablet 04-18 14:28: 46 04-18 00:00 :00 No 5mg Take 5 mg by mouth 2 (two) times daily. [facility] TRIAMTERENE ORAL 04-18 14:28: 46 04-18 00:00 :00 No 7mg Take 7 mg by mouth daily. [facility] guanfacine HCl (GUANFACINE ORAL) 04-18 14:28: 46 04-18 00:00 :00 No 1mg Take 1 mg by mouth 2 (two) times daily. [facility] KCL (POTASSIUM CHLORIDE) 20 mEq in lactated ringers 1,000 mL infusion 04-17 17:15: 00 04-18 15:49 :35 No IV Infusion, CONTINUOUS , Starting on Wed04/17/22 at 1215, Until 04/18/22 at 1049, 1,000 mL, at 100 mL/hr [facility] magnesium sulfate in water 2 gram/50 mL (4 %) infusion 2 g 04-17 17:00: 00 04-17 18:42 :00 No 2g 2 g, IV Piggyback, Administer over 60 Minutes, Q1H, 2 doses, First dose on Wed04/17/22 at 1200, Last dose on Wed04/17/22 at 1300, Routine [facility] metoprolol (LOPRESSOR) injection 5 mg 04-17 05:30: 00 04-17 04:36 :00 No 5mg 5 mg, Intravenou s, ONCE, 1 dose, On Wed04/17/22 at 0030, Routine [facility] NaCl 0.9% (NS) IV infusion 500 mL 04-17 00:00: 00 04-17 00:22 :00 No 500mL at 125 mL/hr, IV Infusion, ONCE, 1 dose, On Wed04/16/22 at 1900, Routine [facility] NaCl 0.9% (NS) PEDIATRIC IV infusion 04-16 23:30: 00 04-17 16:09 :26 No IV Infusion, at 125 mL/hr, CONTINUOUS , Starting on Wed04/16/22 at 1830, Until Wed04/17/22 at 1109, Routine [facility] metoprolol (LOPRESSOR) injection 5 mg 04-16 22:00: 00 04-16 21:13 :00 No 5mg 5 mg, Slow IV Push, ONCE, 1 dose, On Wed04/16/22 at 1700, Routine [facility] heparin (porcine) injection 5,000 Units 04-16 19:00: 00 Yes 5000U 5,000 Units, Subcutaneo us, Q8H, First dose on Wed04/16/22 at 1400, Until Discontinu ed, Routine [facility] hydralAZINE (APRESOLINE ) injection 10 mg 04-16 17:20: 03 Yes 10mg 10 mg, Slow IV Push, Q6HPRN, Starting on Wed04/16/22 at 1220, Until Discontinu ed, Routine, DBP=>100; SBP=>160, For SBP > 160 [facility] LORazepam (ATIVAN) injection 0.5 mg 04-16 17:18: 55 Yes .5mg 0.5 mg, Slow IV Push, TIDPRN, Starting on Wed04/16/22 at 1218, Until Discontinu ed, Routine, Anxiety, Agitation [facility] proMETHazin e (PHENERGAN) 25 mg in NaCl 0.9% (NS) 50 mL IV piggyback 04-16 17:17: 26 Yes 25mg 25 mg, IV Piggyback, Q4HPRN, Starting on Wed04/16/22 at 1217, Until Discontinu ed, Routine, N/V unresponsi ve to Ondansetro n [facility] Sliding Scale Insulin-Reg ular + Fsbg Testing 04-16 17:00: 00 Yes Subcutaneo us, Q6H, First dose on Wed04/16/22 at 1200, Until Discontinu ed, Routine [facility] NaCl 0.9% (NS) IV infusion 1,000 mL 04-16 12:45: 00 04-16 12:49 :00 No 1000mL at 125 mL/hr, IV Infusion, ONCE, 1 dose, On Wed04/16/22 at 0745, Routine [facility] glucagon (GLUCAGEN DIAGNOSTIC KIT) injection 1 mg 04-16 11:48: 27 Yes 1mg 1 mg, Intramuscu lar, PRN, Starting on Wed04/16/22 at 0648, Until Discontinu ed, WAQAS, Blood Glucose < or = 70 mg/dL and patient is unable to swallow or has mental changes. [facility] ondansetron (ZOFRAN (PF)) injection 4 mg 04-16 11:44: 19 Yes 4mg 4 mg, Slow IV Push, Q6HPRN, Starting on Wed04/16/22 at 0644, Until Discontinu ed, Routine, Nausea and Vomiting (N/V) [facility] ondansetron (ZOFRAN (PF)) injection 4 mg 04-16 10:15: 00 04-16 09:05 :00 No 4mg 4 mg, Slow IV Push, ONCE, 1 dose, On Wed04/16/22 at 0515, WAQAS [facility] NaCl 0.9% (NS) bolus infusion 500 mL 04-16 08:30: 00 04-16 09:11 :00 No 500mL at 999 mL/hr, 500 mL, IV Infusion, ONCE, 1 dose, On Wed04/16/22 at 0330, STAT [facility] Vital Signs Vital Name Observation Time Observation Value Betzy anderson Body weight 2024-10-03 20:40:00 90.719 kg [facility] acute [facility] BMI 2024-10-03 20:40:00 30.41 kg/m2 [facility] acute hospital Systolic blood pressure 2022-04-18 13:20:00 144 mm[Hg] [facility] Diastolic blood pressure 2022-04-18 13:20:00 71 mm[Hg] [facility] Heart rate 2022-04-18 13:20:00 119 /min [facility] Body temperature 2022-04-18 13:20:00 36.83 Naye [facility] Oxygen saturation in Arterial blood by Pulse oximetry 2022-04-18 13:20:00 95 /min [facility] Respiratory rate 2022-04-18 01:20:00 16 /min [facility] Body weight 2022-04-17 09:50:00 91.082 kg [facility] acute hospital BMI 2022-04-17 09:50:00 30.53 kg/m2 [facility] acute hospital Body height 2022-04-16 12:00:00 172.7 cm [facility] Procedures Procedure Date / Time Performed Performing Clinician Source B-SCAN ULTRASOUND - OU - BOTH EYES 2024-10-04 00:01:47 Evan Selby [facility] POCT GLUCOSE (AUTOMATED) 2022-04-18 10:57:00 Pepe Holm [facility] CBC WITH DIFF 2022-04-18 10:54:00 [facility] COMP. METABOLIC PANEL ([id number]) 2022-04-18 09:01:00 Ryland Manzo [facility] MAGNESIUM 2022-04-18 09:01:00 Ryland Manzo [facility] POCT GLUCOSE (AUTOMATED) 2022-04-18 05:04:00 Pepe Holm [facility] POCT GLUCOSE (AUTOMATED) 2022-04-18 02:36:00 Pepe Holm [facility] POCT GLUCOSE (AUTOMATED) 2022-04-17 22:06:00 Pepe Holm [facility] XR KUB 2022-04-17 19:35:52 Ryland Manzo [facility] CBC WITH DIFF 2022-04-17 15:28:00 [facility] BASIC METABOLIC PANEL (NA, K, CL, CO2, GLUCOSE, BUN, CREATININE, CA) 2022-04-17 15:15:00 [facility] MAGNESIUM 2022-04-17 15:15:00 Ryland Manzo [facility] URINE DRUG (IMMUNOASSAY) - COMPREHENSIVE DRUG SCREEN 2022-04-17 14:18:00 Ethel Holm [facility] URINALYSIS 2022-04-17 14:18[facility] URINE RANDOM 2022-04-17 14:17:00 Sreekanth Manzo [facility] SODIUM, URINE RANDOM 2022-04-17 14:17:00 Ryland Manzo [facility] CBC WITH DIFF 2022-04-17 13:21:[address] [facility] HEPATIC FUNCTION PANEL ([id number]) (ALB,T.PRO,BILI T,BU/BC,ALT,AST,ALK PHOS) 2022-04-17 13:21:00 [facility] POCT GLUCOSE (AUTOMATED) 2022-04-17 12:07:00 Pepe Holm [facility] XR KUB 2022-04-17 10:22:00 Garnica, [facility] POCT GLUCOSE (AUTOMATED) 2022-04-17 09:52:00 Pepe Holm [facility] POCT GLUCOSE (AUTOMATED) 2022-04-17 05:47:00 Pepe Holm [facility] OCCULT (GUAIAC) BLOOD 2022-04-17 00:24:00 Liss Anderson [facility] CLOSTRIDIUM DIFFICILE TOXIN 2022-04-17 00:24:00 Trisha Anderson [facility] FECAL PATHOGENS BY PCR 2022-04-17 00:24:00 Danyel Manzo [facility] POCT GLUCOSE (AUTOMATED) 2022-04-16 21:46:00 Pepe Holm [facility] POCT GLUCOSE (AUTOMATED) 2022-04-16 17:17:00 Pepe Holm [facility] HB ECG ROUTINE & RHYTHM STRIP 2022-04-16 17:14:22 Ryland Manzo [facility] US GALL BLADDER 2022-04-16 14:32:00 Jw Duff [facility] POCT GLUCOSE (AUTOMATED) 2022-04-16 12:53:00 Pepe Holm [facility] CT ABDOMEN PELVIS WO CONTRAST 2022-04-16 08:18:00 Ethel Holm [facility] COMP. METABOLIC PANEL ([id number]) 2022-04-16 07:00:00 Ethel Holm [facility] CBC WITH DIFF 2022-04-16 07:00:00 Ethel Holm [facility] GLYCOSYLATED HEMOGLOBIN (A1C) 2022-04-16 07:00:00 Jw Duff [facility] LIPASE 2022-04-16 07:00:00 Ethel Holm [facility] acute hospital HB ECG ROUTINE & RHYTHM STRIP 2022-04-16 06:46:28 Ethel Holm [facility] POCT GLUCOSE (AUTOMATED) 2022-04-16 06:20:00 Pepe Holm [facility] NOTICE OF PRIVACY PRACTICES 2022-04-16 05:41:30 Doctor Unassigned, [place] [facility] CONSENT/REFUSAL FOR DIAGNOSIS AND TREATMENT 2022-04-16 05:40:31 Doctor Unassigned, [place] [facility] Encounters Start Date/Time End Date/Time Encounter Type Admission Type Attending [facility] Care Facility Care Department Encounter ID Source 2024-10-03 14:45:00 2024-10-03 17:02:16 [facility] [id number] [facility] 2022-04-16 00:42:00 2022-04-18 12:15:00 Hospital Encounter Ethel Holm [facility] [id number] [facility] 2022-04-16 00:42:00 2022-04-18 12:15:00 Inpatient X ETHEL HOLM [facility] [place] [id number] [facility] Results Test Description Test Time Test Comments Results Result Co mments Source General acute hospital WITH [id number] 11:06:26* Test Item Value Reference Range Interpretation [...] 33.2 g/dL 31.6-35.1 RDW-SD (test code = 79252-4) 40.9 fL 39.0-49.9 RDW-CV (test code = 788-0) 12.9 % 12.0-15.5 PLT (test code = 777-3) See_Comment [Automated messa ge] The system which generated this result transmitted reference range: 166 - 358 10*3/?L. The reference range was not used to interpret this result as normal/abnormal. MPV (test code = 06554-7) 9.1 fL 9.5-12.9 L NRBC/100 WBC (test code = 3428283426) See_Comment [Automated me ssage] The system which generated this result transmitted reference range: 0.0 - 10.0 /100 WBCs. The reference range was not used to interpret this result as normal/abnormal. NRBC x10^3 (test code = 7095763836) <0.01 See_Comment [Automated messa ge] The system which generated this result transmitted reference range: 10*3/?L. The reference range was not used to interpret this result as normal/abnormal. GRAN MAT (NEUT) % (test code = 770-8) 74.1 % IMM GRAN % (test code = 3670570774) 0.50 % LYMPH % (test code = 736-9) 19.5 % MONO % (test code = 5905-5) 5.3 % EOS % (test code = 713-8) 0.3 % BASO % (test code = 706-2) 0.3 % GRAN MAT x10^3(ANC) (test code = 7744449281) 6.55 10*3/uL 1.88-7.09 IMM GRAN x10^3 (test code = 8599044128) 0.04 10*3/uL 0.00-0.06 LYMPH x10^3 (test code = 731-0) 1.73 10*3/uL 1.32-3.29 MONO x10^3 (test code = 742-7) 0.47 10*3/uL 0.33-0.92 EOS x10^3 (test code = 711-2) 0.03 10*3/uL 0.03-0.39 BASO x10^3 (test code = 704-7) 0.03 10*3/uL 0.01-0.07 Lab Interpretation (test code = 90734-4) [facility]* Test Item Value Reference Range Interpretation Comme nts MAGNESIUM (test code = 8098814212) 2.4 mg/dL 1.7-2.4 Lab Interpretation (test cod e = 02524-1) [facility] (01594)2022-04-18 10:00:58* Test Item Value Reference Range Interpretation Comme nts NA (test code = 9065972114) 137 mmol/L 135-145 K (test code = 1100711701) 3.4 mmol/L 3.5-5.0 L CL (test code = 4006899789) 108 mmol/L 98-108 CO2 TOTAL (test code = 7347227838) 14 mmol/L 23-31 L AGAP (test code = 1368831715) 2-16 BUN (test code = 2928782943) 73 mg/dL 7-23 H GLUCOSE (test code = 4983588596) 174 mg/dL 70-110 H CREATININE (test code = 7657600570) 1.58 mg/dL 0.50-1.04 H TOTAL BILI (test code = 1883176408) 0.3 mg/dL 0.1-1.1 CALCIUM (test code = 6291214818) 8.2 mg/dL 8.6-10.6 L T PROTEIN (test code = 4646955553) 7.5 g/dL 6.3-8.2 ALBUMIN (test code = 8767242307) 3.9 g/dL 3.5-5.0 ALK PHOS (test code = 9296069150) 78 U/L 34-122 ALTv (test code = 1742-6) 29 U/L 5-35 AST(SGOT) (test code = 3352853654) 22 U/L 13-40 eGFR (test code = 5468322864) mL/min/1.73m2 TIERRA (test code = TIERRA) Association [...] imaging tests). Lab Interpretation (test code = 28013-5) Abnormal [facility] GLUCOSE (AUTOMATED)2022-04-18 05:32:55* Test Item Value Reference Range Interpretation Comme nts POCT GLU (test code = 9753798924) 195 mg/dL 70-110 H Lab Interpretation (test cod e = 14296-8) Abnormal [facility] GLUCOSE (AUTOMATED)2022-04-18 05:25:33* Test Item Value Reference Range Interpretation Comme nts POCT GLU (test code = 0656020095) 184 mg/dL 70-110 H Lab Interpretation (test cod e = 75065-7) Abnormal [facility] GLUCOSE (AUTOMATED)2022-04-18 01:38:01* Test Item Value Reference Range Interpretation Comme nts POCT GLU (test code = 5560780785) 175 mg/dL 70-110 H Lab Interpretation (test cod e = 38706-5) Abnormal [facility] GLUCOSE (AUTOMATED)2022-04-17 17:25:00* Test Item Value Reference Range Interpretation Comme nts POCT GLU (test code = 4199268835) 137 mg/dL 70-110 H Lab Interpretation (test cod e = 26872-3) Abnormal [facility] Metabolic Panel (NA, K, CL, CO2, GLUCOSE, BUN, CREATININE, CA)2022-04-17 16:03:48* Test Item Value Reference Range Interpretation Comme nts NA (test code = 8536201201) 136 mmol/L 135-145 K (test code = 2051972082) 3.4 mmol/L 3.5-5.0 L CL (test code = 4211202011) 101 mmol/L 98-108 CO2 TOTAL (test code = 8847951771) 17 mmol/L 23-31 L AGAP (test code = 4671200966) 2-16 H BUN (test code = 7293117520) 88 mg/dL 7-23 H GLUCOSE (test code = 5326576466) 148 mg/dL 70-110 H CREATININE (test code = 1419077135) 2.41 mg/dL 0.50-1.04 H CALCIUM (test code = 7114467053) 7.9 mg/dL 8.6-10.6 L eGFR (test code = 9093319822) mL/min/1.73m2 TIERRA (test code = TIERRA) Association [...] imaging tests). Lab Interpretation (test code = 91857-6) [facility] 16:03:48* Test Item Value Reference Range Interpretation Comme nts MAGNESIUM (test code = 6197555959) 1.2 mg/dL 1.7-2.4 L Lab Interpretation (test cod e = 04612-1) [facility]normal [facility] [id number] 15:43:22* Test Item Value Reference Range Interpretation [...] 33.8 g/dL 31.6-35.1 RDW-SD (test code = 18693-7) 40.3 fL 39.0-49.9 RDW-CV (test code = 788-0) 12.8 % 12.0-15.5 PLT (test code = 777-3) See_Comment H [Automated messa ge] The system which generated this result transmitted reference range: 166 - 358 10*3/?L. The reference range was not used to interpret this result as normal/abnormal. MPV (test code = 52195-7) 9.4 fL 9.5-12.9 L NRBC/100 WBC (test code = 6007754408) See_Comment [Automated me ssage] The system which generated this result transmitted reference range: 0.0 - 10.0 /100 WBCs. The reference range was not used to interpret this result as normal/abnormal. NRBC x10^3 (test code = 9238865643) <0.01 See_Comment [Automated messa ge] The system which generated this result transmitted reference range: 10*3/?L. The reference range was not used to interpret this result as normal/abnormal. GRAN MAT (NEUT) % (test code = 770-8) 78.3 % IMM GRAN % (test code = 9396045983) 0.40 % LYMPH % (test code = 736-9) 15.0 % MONO % (test code = 5905-5) 5.6 % EOS % (test code = 713-8) 0.4 % BASO % (test code = 706-2) 0.3 % GRAN MAT x10^3(ANC) (test code = 8798850846) 7.38 10*3/uL 1.88-7.09 H IMM GRAN x10^3 (test code = 0568052982) 0.04 10*3/uL 0.00-0.06 LYMPH x10^3 (test code = 731-0) 1.42 10*3/uL 1.32-3.29 MONO x10^3 (test code = 742-7) 0.53 10*3/uL 0.33-0.92 EOS x10^3 (test code = 711-2) 0.04 10*3/uL 0.03-0.39 BASO x10^3 (test code = 704-7) 0.03 10*3/uL 0.01-0.07 Lab Interpretation (test code = 87877-5) [facility]normal [facility] (19065[facility] (ALB,T.PRO,BILI T,BU/BC,ALT,AST,ALK PHOS)2022-04-17 14:07:47TOTAL BILIComment: Possible contamination notified Dr Sreekanth Manzo. Requested recollection. This is a corrected result. ?Previous result was 0.1 mg/dL on 04/17/2022 [facility] LABORATORYBILI UNCONComment: Possible contamination notified Dr Sreekanth Manzo. Requested recollection. Thisis a corrected result. ?Previous result was 0.0 mg/dL on 04/17/[address] [place], [place] [address]BILI CONJComment: Possible contamination notified Dr Sreekanth Manzo. Requested recollection. This is a corrected result. ?Previous result was 0.0 mg/dL on 04/17/[address] [place] [address] LABORATORYT PROTEINComment: Possible contamination notified Dr Sreekanth Manzo. Requested recollection. This is a corrected result. ?Previous result was 6.4 g/dL on 04/17/[address] [place] [address] LABORATORYALBUMINComment: Possible contamination notified Dr Sreekanth Manzo. Requested recollection. This is a corrected result. ?Previous result was 3.4 g/dL on 04/17/[address] [place] [address] LABORATORYALK PHOSComment: Possible contamination notified Dr Sreekanth Manzo. Requestedrecollection. This is a corrected result. ?Previous result was 61 U/L on 04/17/[address] [place] [address] LABORATORYALTvComment: Possible contamination notified Dr Sreekanth Manzo. Requested recollection. This is a corrected result. ?Previous result was 28 U/L on 04/17/[address] [place] [address] LABORATORYAST(SGOT)Comment: Possible contamination notified Dr Sreekanth Manzo. Requested recollection. This is a corrected result. ?Previous result was 20 U/L on 04/17/[address] [place] [address] [facility] CenterCB with [id number] 14:01:50WBCComment: Possible contamination Notified Dr. Manzo as per SPB. This is a corrected result. ?Prev ious result was 8.96 10*3/?L on 04/17/[address] [place] [address] LABORATORYRBCComment: Possible contamination Notified Dr. Manzo as per SPB. This is a corrected result. ?Previous result was 2.97 10*6/?L on 04/17/[address] [place] [address] LABORATORYHGBComment: Possible contamination Notified Dr. Manzo as per SPB. This is a corrected result. ?Previous result was 8.8 g/dL on 04/17/[address] [place] [address] LABORATORYHCTComment: Possible contamination Notified Dr. Manzo as per SPB. This is a corrected result. ?Previous result was 25.7 % on 04/17/[address] [place], [place] [address]MCVComment: Possible contamination Notified Dr. Manzo as per SPB. This is a corrected result. ?Previous result was 86.5 fL on 04/17/[address] [place], [place] [address]MCHComment: Possible contamination Notified Dr. Manzo as per SPB. This is a corrected result. ?Previous result was 29.6 pg on 04/17/[address] [place], [place] [address]MCHCComment: Possible contamination Notified Dr. Manzo as per SPB. This is a corrected result. ?Previous result was 34.2 g/dL on 04/17/[address] [place], [place] [address]RDW-SDComment: Possible contamination Notified Dr. Manzo as per SPB. This is a corrected result. ?Previous result was 40.6 fL on 04/17/[address] [place], [place] [address]RDW-CVComment: Possible contamination Notified Dr. Manzo as per SPB. This is a corrected result. ?Previous result was 12.9 % on 04/17/[address] [place] [address] LABORATORYPLTComment: Possible contamination Notified Dr. Manzo as per SPB. This is a corrected result. ?Previous result was 315 10*3/?L on 04/17/[address] [place] [address] LABORATORYMPVComment: Possible contamination Notified Dr. Manzo as per SPB. This is a corrected result. ?Previous result was 9.2 fL on 04/17/[address] [place], [place] [address]NRBC/100 WBCComment: This is a corrected result. Previous result was 0.0 /100 WBCs on 04/17/[address] [place], [place] [address]NRBC x10^3Comment: This is a corrected result. Previous result was <0.01 10*3/?L on 04/17/[address] [place] [address] LABORATORYGRAN MAT (NEUT) %Comment: This is a corrected result. Previous result was 71.9 % on 04/17/[address] [place] [address] LABORATORYIMM GRAN %Comment: This renard corrected result. Previous result was 0.40 % on 04/17/[address] [place] [address] LAB ORATORYLYMPH %Comment: This is a corrected result. Previous result was 21.3 % on 04/17/[address] [place] [address] LABORATORYMONO %Comment: This is a corrected result. Previous result was 5.8 % on 04/17/[address] [place] [address] LABORATORYEOS %Comment: This is a corrected result. Previous result was 0.4 % on 04/17/[address] [place] [address] LABORATORYBASO%Comment: This is a corrected result. Previous result was 0.2 % on 04/17/[address] [place] [address] LABORATORYGRAN MAT x10^3(ANC)Comment: This is a corrected result. Previous result was6.43 10*3/uL on 04/17/[address] [place] [address] LABORATORYIMM GRAN x10^3Comment: This is a corrected result. Previous result was 0.04 10*3/uL on 04/17/[address] [place] [address] LABORATORYLYMPH x10^3Comment: This is a corrected result. Previous result was 1.91 10*3/uL on 04/17/[address] [place] [address] LABORATORYMONO x10^3Comment: This is a corrected result. Previous result was 0.52 10*3/uL on 04/17/[address] [place] [address] LABORATORYEOS x10^3Comment: This is a corrected result. Previous result was 0.04 10*3/uL on 04/17/[address] [place] [address] LABORATORYBASO x10^3Comment: This is a corrected result. Previous resultwas <0.03 10*3/uL on 04/17/2022 at [facility] 2022-04-17 12:53:56* Test Item Value Reference Range Interpretation Comme nts POCT GLU (test code = 8949650554) 130 mg/dL 70-110 H Lab Interpretation (test cod e = 07347-0) Abnormal [facility] GLUCOSE (AUTOMATED)2022-04-17 05:56:50* Test Item Value Reference Range Interpretation Comme nts POCT GLU (test code = 9491134614) 126 mg/dL 70-110 H Lab Interpretation (test cod e = 33820-6) Abnormal [facility] GLUCOSE (AUTOMATED)2022-04-16 21:59:09* Test Item Value Reference Range Interpretation Comme nts POCT GLU (test code = 1278264007) 236 mg/dL 70-110 H Lab Interpretation (test cod e = 88280-7) Abnormal [facility] GLUCOSE (AUTOMATED)2022-04-16 17:21:47* Test Item Value Reference Range Interpretation Comme nts POCT GLU (test code = 0772267291) 255 mg/dL 70-110 H Lab Interpretation (test cod e = 88743-2) [facility] 15:09:27* Test Item Value Reference Range Interpretation Comme nts HGB A1C (test code = 4548-4) 7.2 % 4.0-5.7 H TIERRA (test code = TIERRA) Reference RangesNormal: <5.7%Prediabetes: 5.7 - 6.4%Diabetes: > 6.5% Lab Interpretation (test code = 09537-4) Abnormal [facility] GLUCOSE (AUTOMATED)2022-04-16 13:10:41* Test Item Value Reference Range Interpretation Comme nts POCT GLU (test code = 1811191375) 240 mg/dL 70-110 H Lab Interpretation (test cod e = 23205-4) [facility] Center[facility] MET[facility]OLIC PAN[facility] (68063)2022-04-16 07:19:07* Test Item Value Reference Range Interpretation Comme nts NA (test code = 7285708964) 128 mmol/L 135-145 L K (test code = 6027476266) 4.3 mmol/L 3.5-5.0 CL (test code = 7225277829) 91 mmol/L 98-108 L CO2 TOTAL (test code = 5196684517) 18 mmol/L 23-31 L AGAP (test code = 2480971018) 2-16 H BUN (test code = 7989827894) 84 mg/dL 7-23 H GLUCOSE (test code = 2253211634) 205 mg/dL 70-110 H CREATININE (test code = 9054376197) 2.64 mg/dL 0.50-1.04 H TOTAL BILI (test code = 5008313172) 0.3 mg/dL 0.1-1.1 CALCIUM (test code = 1598117295) 9.1 mg/dL 8.6-10.6 T PROTEIN (test code = 2700790685) 7.2 g/dL 6.3-8.2 ALBUMIN (test code = 1673144054) 4.0 g/dL 3.5-5.0 ALK PHOS (test code = 9060041946) 71 U/L 34-122 ALTv (test code = 1742-6) 40 U/L 5-35 H AST(SGOT) (test code = 4892491784) 26 U/L 13-40 eGFR (test code = 7917650051) mL/min/1.73m2 TIERRA (test code = TIERRA) Association [...] imaging tests). Lab Interpretation (test code = 74177-4) [facility] 07:18:47* Test Item Value Reference Range Interpretation Comme nts LIPASE (test code = 2666165897) 657 U/L 0-220 H Lab Interpretation (test cod e = 03164-9) [facility]normal [facility] CenterCBC WITH WEAQ5309-63-15 07:07:25* Test Item Value Reference Range Interpretation Comme nts WBC (test code = 6690-2) See_Comment [Automated Manyeta] The system which generated this result transmitted reference range: 4.30 - 11.10 10*3/?L. The reference range was not used to interpret this result as normal/abnormal. RBC (test code = 789-8) See_Comment L [Automated Manyeta] The system which generated this result transmitted [...] 34.6 g/dL 31.6-35.1 RDW-SD (test code = 60891-6) 37.7 fL 39.0-49.9 L RDW-CV (test code = 788-0) 12.5 % 12.0-15.5 PLT (test code = 777-3) See_Comment [Automated messa ge] The system which generated this result transmitted reference range: 166 - 358 10*3/?L. The reference range was not used to interpret this result as normal/abnormal. MPV (test code = 51703-3) 9.5 fL 9.5-12.9 NRBC/100 WBC (test code = 4790798667) See_Comment [Automated me ssage] The system which generated this result transmitted reference range: 0.0 - 10.0 /100 WBCs. The reference range was not used to interpret this result as normal/abnormal. NRBC x10^3 (test code = 0311662696) <0.01 See_Comment [Automated messa ge] The system which generated this result transmitted reference range: 10*3/?L. The reference range was not used to interpret this result as normal/abnormal. GRAN MAT (NEUT) % (test code = 770-8) 73.1 % IMM GRAN % (test code = 5104985549) 0.50 % LYMPH % (test code = 736-9) 18.4 % MONO % (test code = 5905-5) 7.2 % EOS % (test code = 713-8) 0.4 % BASO % (test code = 706-2) 0.4 % GRAN MAT x10^3(ANC) (test code = 1162723704) 5.60 10*3/uL 1.88-7.09 IMM GRAN x10^3 (test code = 4306516674) 0.04 10*3/uL 0.00-0.06 LYMPH x10^3 (test code = 731-0) 1.41 10*3/uL 1.32-3.29 MONO x10^3 (test code = 742-7) 0.55 10*3/uL 0.33-0.92 EOS x10^3 (test code = 711-2) 0.03 10*3/uL 0.03-0.39 BASO x10^3 (test code = 704-7) 0.03 10*3/uL 0.01-0.07 Lab Interpretation (test code = 66428-1) Abnormal [facility] GLUCOSE (AUTOMATED)2022-04-16 06:24:26* Test Item Value Reference Range Interpretation Comme nts POCT GLU (test code = 2940735861) 198 mg/dL 70-110 H Notified Provide r Lab Interpretation (test code = 27025-9) Abnormal [facility]"
--- NOTE | 2024-12-01 13:03 | EDPHYS ---
Physician Documentation [facility] Name: Diana Saavedra Age: 79 yrs Sex: Female : 1945 Arrival Date: 12/01/2024 Time: 12:26 Bed IW3 Private MD: ED Physician Blair Gutierrez HPI: 12/01 13:02 This 79 yrs old Female presents to ER via Ambulatory with complaints of Staple Removal. kb 13:02 Pt is an 79 year old female who presents for staple removal. states she had the torsten kb placed on 11/24/24. Denies any pain, drainage, fever. . Historical: - Allergies: 12:53 PENICILLINS; hb - Immunization history:: Adult Immunizations up to date. - Infectious Disease History:: Denies. - Social history:: Smoking status: Patient denies any tobacco usage or history of. ROS: 13:02 Constitutional: As per HPI kb Exam: 13:02 Constitutional: This is a well developed, well nourished patient who is awake, alert, kb and in no acute distress. Head/Face: Normocephalic, atraumatic. ENT: Moist Mucous membranes Cardiovascular: Regular rate Respiratory: Respirations even and unlabored. No increased work of breathing. Talking in full sentences MS/ Extremity: Pulses equal, no cyanosis. Neurovascular intact. Full, normal range of motion. Neuro: Awake and alert, GCS 15, oriented to person, place, time, and situation. 13:02 Skin: Wound recheck: Staple laceration closure: the wound is healing well, the edges are well approximated, no evidence of dehiscence, no drainage, no erythema, no swelling, Vital Signs: 12:52 BP 148 / 82; Pulse 88; Resp 16; Temp 98.4; Pulse Ox 100% on R/A; Pain 0/10; hb 12:52 Pain Scale: Adult hb Procedures: 13:01 Suture/Staple removal: Removed 8 torsten, from top of head, site appears well healed, kb Patient tolerated well. MDM: 12:34 Medical Screening Exam initiated kb 13:01 Data reviewed: vital signs, nurses notes. Historians other than the Patient: Friend: deven friend. Counseling: I had a detailed discussion with the patient and/or guardian regarding the historical points, exam findings, and any diagnostic results supporting the discharge/admit diagnosis, the need for outpatient follow up, a family practitioner, to return to the emergency department if symptoms worsen or persist or if there are any questions or concerns that arise at home. Administered Medications: No medications were administered Disposition: 15:14 Co-signature as Attending Physician, Blair Gutierrez MD I reviewed the patient's care rt provided by the Advanced Practice Provider and agree with the diagnosis and treatment plan. Disposition Summary: 12/01/24 13:03 Discharge Ordered Notes: Location: Home kb Condition: Stable kb Diagnosis - Encounter for removal of sutures - torsten kb Followup: kb - With: Emergency Department - When: As needed - Reason: Worsening of condition Followup: kb - With: Private Physician - When: 2 - 3 days - Reason: Recheck today's complaints, Continuance of care, Re-evaluation by your physician Discharge Instructions: - Discharge Summary Sheet kb - Suture Removal, Care After kb Forms: - Medication Reconciliation Form kb - Antibiotic Education kb - Prescription Opioid Use kb - Patient Portal Instructions kb - Leadership Thank You Letter kb Signatures: Neema Pérez FNP-C FNP-Conchita Villa, RN RN Blair Gutierrez MD MD rt
--- NOTE | 2024-12-01 13:03 | ER ---
Nurse's Notes [facility] Name: Diana Saavedra Age: 79 yrs Sex: Female : 1945 Arrival Date: 12/01/2024 Time: 12:26 Bed IW3 Private MD: Diagnosis: Encounter for removal of sutures-torsten Presentation: 12/01 12:52 Chief complaint: Received torsten to top of head 7 days ago, here for removal. hb Coronavirus screen: At this time, the client does not indicate any symptoms associated with coronavirus-19. Ebola Screen: No symptoms or risks identified at this time. Initial Sepsis Screen: Does the patient meet any 2 criteria? No. Patient's initial sepsis screen is negative. Does the patient have a suspected source of infection? No. Patient's initial sepsis screen is negative. Risk Assessment: Do you want to hurt yourself or someone else? Patient reports no desire to harm self or others. Onset of symptoms was November 24, 2024. 12:52 Method Of Arrival: Ambulatory hb 12:52 Acuity: CONCETTA 4 hb Historical: - Allergies: 12:53 PENICILLINS; hb - Immunization history:: Adult Immunizations up to date. - Infectious Disease History:: Denies. - Social history:: Smoking status: Patient denies any tobacco usage or history of. Vital Signs: 12:52 BP 148 / 82; Pulse 88; Resp 16; Temp 98.4; Pulse Ox 100% on R/A; Pain 0/10; hb 12:52 Pain Scale: Adult hb ED Course: 12:29 Patient arrived in ED. al6 12:34 Nemea Pérez FNP-C is [facility]. kb 12:34 Blair Gutierrez MD is Attending Physician. kb 12:53 Triage completed. hb 12:53 Arm band placed on. hb Administered Medications: No medications were administered Outcome: 13:03 Discharge ordered by . kb 13:04 Patient left the ED. hb Signatures: Neema Pérez FNP-C FNP-Ckb Baxter, Heather, RN RN Amy Fowler al6
[2024-12-01 15:26] VITALS: BP 148/82; TEMP 98.4; O2SAT 100
== END 2024-12-01 13:04 | disposition home or self-care (01) ==
LOC: ER 12:26
DX: Z48.02 Encounter for removal of sutures (principal)
CPT/HCPCS: 99281